=== PATIENT | female | born 1995 | race Caucasian/White ===

== ENCOUNTER → 2019-03-27 14:50 | Outpatient (CLI) | payer BC, SELFPAY ==
--- NOTE | 2019-03-27 14:51 | DI.CT.S_ITS ---
PROCEDURE: CT SINUS SCREEN WO CON INDICATIONS: Recurrent sinusitis - no improvement with antibiotics TECHNIQUE: Noncontrast 3.0 mm axial images acquired from the frontal sinuses to the mid-sella, with coronal and sagittal reformats. For radiation dose reduction, the following was used: automated exposure control, adjustment of mA and/or kV according to patient size. COMPARISON: None. FINDINGS: Image quality: Excellent. Maxillary Sinuses: No bony remodeling or destruction. Sinuses are clear. Ethmoid Air Cells: No bony remodeling or destruction. Sinuses are clear. Sphenoid Sinuses: No bony remodeling or destruction. Sinuses are clear. Frontal Sinuses: No bony remodeling or destruction. Sinuses are clear. Ostiomeatal Complexes: Ostiomeatal complexes are patent, yet they are mildly constitutionally narrowed, with infraorbital air cells. Miscellaneous: Visualized intra-orbital contents are normal. 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 Moderate rightward nasal septal deviation is seen. IMPRESSION: No significant active paranasal sinus disease is seen. Moderate rightward nasal septal deviation is seen. Patent, yet constitutionally narrowed ostiomeatal complexes. Dictated by: Natan To M.D. on 03/27/2019 at 16:05 Approved by: Natan To M.D. on 03/27/2019 at 16:06
== END ==
PROVIDERS: PCP Physician Assistant; Visit Provider Physician Assistant
DX: J01.91 Acute recurrent sinusitis, unspecified (principal); J34.3 Hypertrophy of nasal turbinates; J34.2 Deviated nasal septum
CPT/HCPCS: 70486

== ENCOUNTER → 2020-01-17 15:37 | Outpatient (CLI) | payer OTHER, SELFPAY ==
[2020-01-17 16:21] LABS: Influenza A - CEPHEID Flu A NEGATIVE (NEGATIVE); Influenza B - CEPHEID Flu B NEGATIVE (NEGATIVE)
[2020-01-17 18:46] LABS: Adenovirus Not Detected (Not Detect); Bordetella pertussis Not Detected (Not Detect); Chlamydophila pneumoniae Not Detected (Not Detect); Coronavirus 229E Not Detected (Not Detect); Coronavirus HKU1 Not Detected (Not Detect); Coronavirus NL 63 Not Detected (Not Detect); Coronavirus OC43 Not Detected (Not Detect); Human Metapneumovirus Not Detected (Not Detect); Human Rhinovirus/Enterovirus Not Detected (Not Detect); Influenza A Not Detected (Not Detect); Influenza B Not Detected (Not Detect); Mycoplasma pneumoniae Not Detected (Not Detect); Parainfluenza Virus 1 Not Detected (Not Detect); Parainfluenza Virus 2 Not Detected (Not Detect); Parainfluenza Virus 3 Not Detected (Not Detect); Parainfluenza Virus 4 Not Detected (Not Detect); Respiratory Syncytial Virus Not Detected (Not Detect)
[2020-01-24 17:03] LABS: COVID19 Sendout Not Detected
== END ==
PROVIDERS: PCP Physician Assistant; Visit Provider Physician Assistant
DX: R68.89 Other general symptoms and signs (principal); J02.9 Acute pharyngitis, unspecified
CPT/HCPCS: 87070; 87077; 87147; 87502; 87633; DELETED

== ENCOUNTER → 2020-06-16 11:53 | Outpatient (CLI) | payer OTHER, SELFPAY ==
[2020-06-16 13:18] LABS: Hematocrit 35.6 % (36-46); Hemoglobin 11.9 g/dL (12.0-16.0); Mean Corpuscular HGB Conc 33.4 % (30-36); Mean Corpuscular Volume 92.6 fL (80-100); Platelet Count 280 X10^3/uL (150-400); Red Blood Cell Count 3.85 X10^6/uL (4.0-5.2); Red Cell Distribution Width 12.9 % (11.6-14.8); White Blood Cell Count 7.8 X10^3/uL (4.5-11.0)
[2020-06-16 13:32] LABS: Alanine Aminotransferase 21 IU/L (<35); Albumin 4.3 g/dL (3.5-5.0); Albumin Globulin Ratio 1.6 (1.0-2.8); Alkaline Phosphatase 69 U/L (38-126); Aspartate Aminotransferase 24 IU/L (14-36); BUN Creatinine Ratio 16.9 (6-22); Bilirubin Total 0.6 mg/dL (0.2-1.3); Blood Urea Nitrogen 10 mg/dL (7-17); Calcium 9.5 mg/dL (8.4-10.2); Carbon Dioxide 24 mmol/L (22-32); Chloride 104 mmol/L (98-107); Cholesterol 188 mg/dL (140-199); Estimated Glomerular Filt Rate > 60.0 mL/min (>60); Globulin 2.7 g/dL (1.7-4.1); Glucose 81 mg/dL (70-100); HDL Cholesterol 86 mg/dL (40-60); HEMOLYSIS < 15 (0-50); LDL Cholesterol Calculated 44 mg/dL (<100); Sodium 136 mmol/L (137-145); Triglycerides 288 mg/dL (35-150)
== END ==
PROVIDERS: PCP Nurse Practitioner Family; Referring Provider Nurse Practitioner Family; Visit Provider Nurse Practitioner Family
DX: Z00.00 Encounter for general adult medical examination without abnormal findings (principal); Z13.6 Encounter for screening for cardiovascular disorders
CPT/HCPCS: 36415; 80053; 80061; 85027

== ENCOUNTER → 2020-09-01 12:40 | Outpatient (CLI) | payer OTHER, SELFPAY ==
[2020-09-05 03:37] LABS: Chlamydia trachomatis Negative (Negative); Mycoplasma genitalium Negative (Negative); Neisseria gonorrhoeae Negative (Negative)
== END ==
PROVIDERS: PCP Nurse Practitioner Family; Visit Provider Obstetrics & Gynecology
DX: Z11.3 Encounter for screening for infections with a predominantly sexual mode of transmission (principal)
CPT/HCPCS: 87491; 87591

== ENCOUNTER → 2020-09-29 10:51 | Outpatient (CLI) | payer OTHER, SELFPAY ==
[2020-09-29 12:14] LABS: Bacteria Urine None Seen; RBC Urine None Seen (0-5/HPF); WBC Urine None Seen (0-5/HPF)
[2020-09-29 13:58] LABS: Appearance Urine UA CLEAR; Bilirubin Urine UA NEGATIVE (NEGATIVE); Color Urine UA YELLOW; Glucose Urine UA NEGATIVE (Negative); Ketones Urine UA NEGATIVE (NEGATIVE); Leukocyte Esterase Urine UA NEGATIVE (NEGATIVE); Nitrite Urine UA NEGATIVE (Negative); Occult Blood Urine UA NEGATIVE (Negative); Protein Urine UA NEGATIVE (Negative); Urobilinogen Urine UA 0.2 E.U./dL (0.2)
[2020-09-29 14:01] LABS: pH Urine UA 5.5 (4.5-8.0)
[2020-09-29 14:03] LABS: Culture Indicated Urine Cult Not Indicated; Urine Comments Microscopic Normal
== END ==
PROVIDERS: PCP Nurse Practitioner Family; Referring Provider Obstetrics & Gynecology; Visit Provider Obstetrics & Gynecology
DX: R39.9 Unspecified symptoms and signs involving the genitourinary system (principal)
CPT/HCPCS: 81001

== ENCOUNTER → 2020-09-29 11:18 | Outpatient (ROUT) | payer OTHER, SELFPAY ==
[2020-09-29 11:41] LABS: COVID19 -Nasal RAPID Negative (Negative)
== END ==
PROVIDERS: PCP Nurse Practitioner Family; Visit Provider Obstetrics & Gynecology
DX: Z11.59 Encounter for screening for other viral diseases (principal)
CPT/HCPCS: 87635

== ENCOUNTER 2020-10-01 09:29 | Day surgery (SDC) | payer OTHER, SELFPAY ==
[2020-09-28 14:47] VITALS: BMI 22.0
[2020-10-01] VITALS (9 sets, daily range): BP systolic 99–123; BP diastolic 63–80; PULSE 57–100; RESP 12–20; TEMP 36.1–36.4; O2SAT 98–100; BMI 22.0
--- NOTE | 2020-10-01 | PATH_ITS ---
[facility] Accession Number: [id number] . 01 Material submitted: . PART A: cervix - ANTERIOR CERVICAL LIP PART B: cervix - POSTERIOR CERVICAL LIP PART C: endocervix - ENDOCERVICAL CURETTINGS . 01 Clinical history: . SDC . 02 Diagnosis: A. Anterior Cervical Lip, LEEP Biopsy: One focus of dysplasia, suspicious for possible high-grade squamous intraepithelial lesion/DAVION 2, present at the inked ectocervical margin; electrocautery artifact is obscuring. Separate regions of low-grade squamous intraepithelial lesion / DAVION 1. The apparent, intact endocervical margin is negative for dysplasia; electrocautery artifact and tissue disruption are obscuring. Changes consistent with previous instrumentation are present. No invasive tumor identified. . B. Posterior Cervical Lip, LEEP Biopsy: Focal involvement by low-grade squamous intraepithelial lesion/DAVION 1. Squamous dysplasia, possibly low grade squamous intraepithelial lesion / DAVION-1, involves an indeterminate blue-inked margin; electrocautery artifact and tissue disruption are obscuring. Negative for invasive tumor. . C. Endocervical Curettings: Strips of endocervical glandular epithelium; negative for glandular dysplasia or malignancy. Tangentially oriented portion of squamous epithelium with focal cytologic atypia suggestive of, but not diagnostic of, low grade squamous intraepithelial lesion / DAVION-1. . V 10/05/2020 1419 Local . 02 Comment: There is a minor disagreement with Pap smear [id number]. . This patient's previous cervical biopsies were reviewed ([facility] [id number]); the high grade dysplasia is fairly extensive in part C (cervix at 12 o'clock). It does not appear likely that the high grade dysplasia was completely removed in the biopsy from 09-02-20. Also, it can take several weeks for the cervical epithelium to re-epithelialize. . The focus that is worrisome for high grade dyslasia in the current specimen (part A, anterior cervical lip, LEEP) is obscured by tissue preservation artifact. . . . . . . . . . . . . 02 Electronically signed: . Deborah Maki MD, Pathologist NPI- [id number] . 01 Gross description: . A. Specimen A is received in formalin, labeled anterior cervical lip and consists of two irregular nicole-pink smooth and glistening portions of ectocervix, measuring 1.7 x 1.6 x 0.4 cm in aggregate. The margins are inked blue. The specimen is serially sectioned and entirely submitted in cassettes A1-A2. B. Specimen B is received in formalin, labeled posterior cervical lip and consists of a 1.5 x 1.5 x 1.0 cm nicole-pink glistening portion of ectocervix. The margin is inked blue. The specimen is serially sectioned and entirely submitted in cassettes B1-B2. C. Specimen C is received in formalin, labeled endocervical curettings and consists of multiple nicole-white fragments of soft tissue, measuring 0.8 x 0.6 x 0.2 cm in aggregate. The specimen is filtered and entirely submitted in cassette C1. ([id number]) /[facility] 10/02/2020 1733 Local . 02 Pathologist provided ICD-10: N87.1 . 02 CPT . 766054, 822425, [id number] Performed at: 01 [facility] [address] [place] [address], [place], [place] [id number] MD Kelvin Garcia MD Phone: [phone] [facility]formed at: [facility] [address] [place], [place] [id number] MD Jocelin Wilcox MD Phone: [phone]
--- NOTE | 2020-10-01 09:49 | SUR.OPER ---
Lithotomy on padded OR bed, head on pillow, arms secured on padded arm boards at <90 degrees abduction. Legs secured in padded yellow fins stirrups.
[2020-10-01] MEDS: LACTATED RINGERS 1,000 ML 100 ML IV (10:02)
--- NOTE | 2020-10-01 10:05 | PM.PREOP ---
Pre-operative Note COVID-19 COVID-19 status: Negative Result date/Date tested (Pos, Neg/Pending): 09/29/20 Interval Note History & Physical reviewed/Exam performed by Physician: Yes Changes to H&P: No
[2020-10-01] MEDS: FERRIC SUBSULFATE 8 GM SOLUTION 8 ML TOP (10:31)
--- NOTE | 2020-10-01 10:44 | PM.OP.1 ---
Operative Date/Time/Diagnoses Date of procedure: 10/01/20 Time of procedure: 10:44 Pre-op diagnosis: HSIL of cervix Post-op diagnosis: same Procedure & Clinicians Procedure: LEEP Same procedure as scheduled: Yes Indications: HSIL of cervix Surgeon: Gwen Malik Click Yes if Unassisted: Yes Anesthesia Type: Sedation Operative Notes Findings: Normal vulva and vagina. Closed cervix with nulliparous cervical os. Area of poor uptake of Lugol solution at 12:00 p.m., extending approximately 3 mm from the os. Specimen(s): none sent Estimated Blood Loss (mL): 5 Blood products transfused: none Procedure in detail: After informed consent was obtained and a test was negative, the patient was transferred to the operating room having just voided. IV sedation was administered, and she was placed in the dorsal lithotomy position. A coated speculum was placed into the vagina and the cervix easily visualized, and the speculum hooked up to suction. Lugol solution was liberally applied to the patient's cervix and upper vagina, and careful inspection for area support uptake was performed with findings as above. A 1.5 x 1 cm LEEP electrocautery loop was used to remove the posterior lip, then the anterior lip of the cervix. Endocervical curettage was performed. A rollerball was then used to cauterize the site of the LEEP specimen and 1-2 mm past the edge, with good hemostasis noted. Monsel's was applied to the area. The patient tolerated the procedure well. The speculum was removed from the vagina. IVF 300ccs Complications: none Post-operative Condition: stable Disposition: PACU Plan for aftercare: Home with routine precautions
[2020-10-01] MEDS: OXYCODONE IR 5 MG TABLET PO (10:58)
[2020-10-01] MEDS: ACETAMINOPHEN 325 MG TABLET 650 MG PO (10:59)
--- NOTE | 2020-10-01 11:14 | SUR.PHASEII ---
Report rcvd from reggie Ramos pt stable and just wanting to rest for a bit before trying to stand. No c/o
== END 2020-10-01 11:35 | disposition home or self-care (01) ==
PROVIDERS: PCP Nurse Practitioner Family; Referring Provider Obstetrics & Gynecology; Visit Provider Obstetrics & Gynecology
PROC: 0UBC7ZZ Excision of Cervix, Via Natural or Artificial Opening (ICD-10-PCS; CPT 57522; principal; 2020-10-01 10:45)
DX: N87.1 Moderate cervical dysplasia (principal); R87.810 Cervical high risk human papillomavirus (HPV) DNA test positive
CPT/HCPCS: 57522; A9270; J1100; J1885; J2405; J2704; J3010

== ENCOUNTER → 2020-12-11 11:06 | Outpatient (CLI) | payer OTHER, SELFPAY ==
[2020-12-11 11:44] LABS: COVID19 -Nasal RAPID Negative (Negative)
== END ==
PROVIDERS: PCP Nurse Practitioner Family; Visit Provider Physician Assistant
DX: J02.9 Acute pharyngitis, unspecified (principal); R51.9 Headache, unspecified; Z20.822 Contact with and (suspected) exposure to COVID-19; R50.9 Fever, unspecified
CPT/HCPCS: 87070; 87635

== ENCOUNTER → 2021-10-12 14:19 | Outpatient (CLI) | payer BC, SELFPAY ==
[2021-10-12 15:15] LABS: COVID19 -Nasal RAPID Negative (Negative)
== END ==
PROVIDERS: PCP Nurse Practitioner Family; Visit Provider Physician Assistant
DX: Z20.822 Contact with and (suspected) exposure to COVID-19 (principal); J31.2 Chronic pharyngitis
CPT/HCPCS: 87070; 87077; 87186; 87635

== ENCOUNTER → 2024-10-22 15:24 | Outpatient (CLI) | payer BC, SELFPAY ==
[2024-10-22 17:17] LABS: Influenza A - CEPHEID Flu A NEGATIVE (NEGATIVE); Influenza B - CEPHEID Flu B NEGATIVE (NEGATIVE); Respiratory Syncytial Virus Negative (Negative)
[2024-10-22 17:35] LABS: COVID-19 CEPHEID 4-PLEX PCR Negative (Negative)
== END ==
PROVIDERS: PCP Family Medicine; Visit Provider Physician Assistant Medical
DX: R05.1 Acute cough (principal); R50.9 Fever, unspecified; J02.9 Acute pharyngitis, unspecified
CPT/HCPCS: 0241U; 87070